=== PATIENT | female | born 1970 | race Caucasian/White ===

== ENCOUNTER 2021-05-01 08:21 | Outpatient (CLI) | payer OTHER, SELFPAY ==
--- NOTE | ~2021-05-01 | MR_ITS ---
EXAMINATION: MR abdomen wo/w con DATE: 05/01/2021 10:00 INDICATION: Abdominal mass. TECHNIQUE: Magnetic resonance imaging (MRI) of the abdomen was performed without and with 17 mL Multi Fara intravenous contrast. Sequences included coronal T2-weighted FS FSE, coronal and axial FS FIEST A, axial T2-weighted FSE, coronal LAVA-flex, axial STIR FSE, axial DWI, axial dual-echo T1-weighted F SPGR, and axial LAVA. Postcontrast sequences included coronal LAVA-flex and a time course of axial LA VA. COMPARISON: Ultrasound 05/01/2021 FINDINGS: There are airspace opacities in the lungs bilaterally with a peripheral predominance. No pleural effu dustin. There is 11.2 x 6.3 cm mass with central scar in left hepatic lobe that demonstrates arterial e nhancement. There is delayed hyperenhancement of the scar. No washout. There is sludge in the gallbla dder, which is normal in size. There is splenomegaly measuring 17.5 cm. There is a 4 mm cystic lesion in the pancreas. The adrenal glands and kidneys are normal. There are no dilated loops of bowel. The re is a 3.3 x 1.6 cm nonenhancing mass in the root of the small bowel mesentery. The endometrial comp ness measures 14 mm in thickness. There is a 4.8 cm cyst in right adnexa. IMPRESSION: 1. 11.2 x 6.3 cm mass in left hepatic lobe, consistent with focal nodular hyperplasia. 2. Moderate splenomegaly. 3. 4 mm cystic lesion of the pancreas. The differential diagnosis includes pseudocyst, intraductal pa pillary mucinous neoplasm (IPMN), mucinous cystic neoplasm (MCN), serous cystadenoma, and neuroendocr ine tumor. Abdomen MRI without and with contrast is recommended in one year. 4. 3.3 cm nonenhancing mass at the root of the small bowel mesentery. The differential diagnosis incl udes hemangioma, lymphangioma, and lymphadenopathy. 5. Diffuse lung disease, consistent with pneumonia versus chronic lung disease. 6. 4.8 cm cyst in right adnexa, most likely benign. Pelvis ultrasound is recommended. 7. Endometrial complex thickness of 14 mm, which is abnormal if the patient is postmenopausal. If the patient is postmenopausal, the differential diagnosis would include endometrial hyperplasia, polyp, and carcinoma, and biopsy would be recommended. Reviewed, dictated and finalized at location A. FRAME TENDER IMPRESSION: 1. 11.2 x 6.3 cm mass in left hepatic lobe, consistent with focal nodular hyper plasia. 2. Moderate splenomegaly. 3. 4 mm cystic lesion of the pancreas. The differential diagnosis includes pseu docyst, intraductal papillary mucinous neoplasm (IPMN), mucinous cystic neoplas m (MCN), serous cystadenoma, and neuroendocrine tumor. Abdomen MRI without and with contrast is recommended in one year. 4. 3.3 cm nonenhancing mass at the root of the small bowel mesentery. The diffe rential diagnosis includes hemangioma, lymphangioma, and lymphadenopathy. 5. Diffuse lung disease, consistent with pneumonia versus chronic lung disease. 6. 4.8 cm cyst in right adnexa, most likely benign. Pelvis ultrasound is recomm ended. 7. Endometrial complex thickness of 14 mm, which is abnormal if the patient is postmenopausal. If the patient is postmenopausal, the differential diagnosis wo uld include endometrial hyperplasia, polyp, and carcinoma, and biopsy would be recommended.
--- NOTE | ~2021-05-01 | US_ITS ---
EXAMINATION: US right upper quadrant DATE: 05/01/2021 10:22 INDICATION: Liver mass. TECHNIQUE: Multiple grayscale and Doppler ultrasound images of the abdomen were obtained. COMPARISON: Abdomen MRI 05/01/2021 FINDINGS: The visualized portions of the head, body, and tail of the pancreas are normal. In the left hepatic lobe, there is a 10.9 x 6.1 cm hypoechoic mass. There is normal flow in main portal vein. Th e gallbladder is normal in size and contains sludge. An 11 mm polyp in the gallbladder demonstrates i ncreased precontrast T1-weighted signal intensity without contrast enhancement on the MRI, consistent with sludge. No gallbladder wall thickening or sonographic Dahl sign. The common duct is normal an d measures 6 mm. IMPRESSION: 1. 10.9 cm liver mass with MRI features consistent with focal nodular hyperplasia. Reviewed, dictated and finalized at location A. LESOFT ADMINISTRATOR IMPRESSION: 1. 10.9 cm liver mass with MRI features consistent with focal nodular hyperplas ia.
[2021-05-01 09:10] LABS: Estimated Glomerular Filt Rate > 60
== END 2021-05-01 08:22 | disposition home or self-care (01) ==
PROVIDERS: PCP Physician Assistant; Visit Provider Physician Assistant
DX: R93.89 Abnormal findings on diagnostic imaging of other specified body structures (principal); K76.9 Liver disease, unspecified; R16.0 Hepatomegaly, not elsewhere classified; R16.1 Splenomegaly, not elsewhere classified; K86.9 Disease of pancreas, unspecified; R93.3 Abnormal findings on diagnostic imaging of other parts of digestive tract; J98.4 Other disorders of lung; N83.01 Follicular cyst of right ovary
CPT/HCPCS: 74183; 76705; A9577

== ENCOUNTER 2021-05-05 11:24 | Outpatient (CLI) | payer OTHER, SELFPAY ==
--- NOTE | ~2021-05-05 | MMUS_ITS ---
EXAMINATION: MM diagnostic brenda BI w anna, US breast BI complete HISTORY: Soft tissue irregularity noted in the right breast on prior outside CT examination. TECHNIQUE: Additional 3-D tomosynthesis images of the breasts were performed and synthetic 2-D images were generated. CAD analysis was submitted and interpreted. High resolution complete bilateral breas t ultrasound was performed. COMPARISON: None BREAST PARENCHYMAL COMPOSITION: The breasts are extremely dense, which lowers the sensitivity of mamm ography FINDINGS: MAMMOGRAPHIC FINDINGS: No suspicious masses, calcifications or architectural distortion are identified in either breast to s uggest malignancy. ULTRASOUND: Complete bilateral US of all 4 quadrants of the breasts and retroareolar region was reviewed. Right breast: Normal heterogeneous echotexture with dense fibroglandular tissue. No discrete mass or fluid collection is identified. Left breast: Dense heterogeneous echotexture and throughout the left breast. At 2:00, 13 cm from the nipple, there is a 6 mm cyst. At 5:00, 3 cm from the nipple there is an oval circumscribed hypoechoic mass measuring 6 mm without posterior shadowing, parallel orientation and no internal vascularity. A t 10:00, 3 cm from the nipple, there is an oval hypoechoic mass measuring 3 mm with no posterior shad owing or internal vascularity. IMPRESSION: 1. Probable benign left breast masses by ultrasound. No evidence for malignancy in the right breast. 2. Recommend 6 month follow-up Limited left breast ultrasound. BI-RADS category 3, probably benign findings. Reviewed, dictated and finalized at location A. ERN CHECKER IMPRESSION: 1. Probable benign left breast masses by ultrasound. No evidence for malignancy in the right breast. 2. Recommend 6 month follow-up Limited left breast ultrasound. BI-RADS category 3, probably benign findings.
== END 2021-05-05 11:25 | disposition home or self-care (01) ==
LOC: ANHIMG 11:30
PROVIDERS: PCP Physician Assistant; Visit Provider Physician Assistant
DX: N64.59 Other signs and symptoms in breast (principal); R93.89 Abnormal findings on diagnostic imaging of other specified body structures; N60.11 Diffuse cystic mastopathy of right breast; N60.12 Diffuse cystic mastopathy of left breast; K76.9 Liver disease, unspecified; N63.22 Unspecified lump in the left breast, upper inner quadrant
CPT/HCPCS: 76641; 77062; 77066; G0279

== ENCOUNTER 2021-05-10 10:08 | Outpatient (CLI) | payer OTHER, SELFPAY ==
--- NOTE | ~2021-05-10 | US_ITS ---
EXAMINATION: US transvaginal DATE: 05/10/2021 11:12 INDICATION: Ovarian cyst Comparison:No prior studies for comparison. TECHNIQUE: Multiple transabdominal and endovaginal sonographic images of the pelvis performed. FINDINGS: The uterus measures 10.2 x 5.4 x 4.9 cm. The endometrial complex measures 18 mm. The right ovary measures 2 x 1.6 x 1.3 cm and the left ovary measures 3.5 x 3.9 x 2.7 cm. There are small follicles in each ovary. There are small cysts, largest measuring 3.3 cm. Normal doppler signal in both ovaries. There is no free fluid in the pelvis. There are no abnormal masses seen on either side. IMPRESSION: 1. Enlarged uterus with endometrial thickening measuring 1.8 cm. 2: Left ovarian cysts, largest measuring 3.3 cm. Reviewed, dictated and finalized at location A. PACKER
== END 2021-05-10 10:09 | disposition home or self-care (01) ==
PROVIDERS: PCP Physician Assistant; Visit Provider Physician Assistant
DX: R93.89 Abnormal findings on diagnostic imaging of other specified body structures (principal); N83.202 Unspecified ovarian cyst, left side
CPT/HCPCS: 76830

== ENCOUNTER 2021-11-15 13:44 | Outpatient (CLI) | payer OTHER, SELFPAY ==
--- NOTE | ~2021-11-15 | US_ITS ---
US breast LT limited 11/15/2021 14:55 Indication: Follow-up left breast masses Procedure: High-resolution Limited ultrasound of the right breast Comparison: 05/05/2021 Findings: At 5:00, 3 cm from the nipple there is an oval circumscribed hypoechoic 7 mm mass which is not significantly changed compared with prior examination allowing for differences of technique. No o ther discrete masses are identified. Impression: 1: Probable benign left breast mass at 5:00, 3 cm from the nipple. BI-RADS CATEGORY 3-PROBABLY BENIGN FINDING RECOMMENDATION: 6 month follow up recommended. Reviewed, dictated and finalized at location A. Impression: 1: Probable benign left breast mass at 5:00, 3 cm from the nipple. BI-RADS CATEGORY 3-PROBABLY BENIGN FINDING RECOMMENDATION: 6 month follow up recommended.
== END 2021-11-15 13:45 | disposition home or self-care (01) ==
PROVIDERS: PCP Physician Assistant; Visit Provider Physician Assistant
DX: R92.8 Other abnormal and inconclusive findings on diagnostic imaging of breast (principal)
CPT/HCPCS: 76642